=== PATIENT | female | born 1960 | race Caucasian/White ===

== ENCOUNTER 2017-03-26 07:58 | Emergency (ER) | payer OTHER ==
[~2017-03-26] VITALS: Ht 175.3 cm; Wt 88.0 kg
[~2017-03-26 07:58] MED LIST: Z.0.NO CURRENT MEDS
[2017-03-26 08:05] VITALS: BP 156/84; PULSE 82; RESP 16; TEMP 97.8; O2SAT 99
[2017-03-26] MEDS ORDERED: BENZ100 PO (08:21)
[2017-03-26] MEDS ORDERED: DOXY100C PO (08:21)
[2017-03-26] MEDS ORDERED: ONDANSETRON ODT 4 MG TAB PO ONE (08:30)
--- NOTE | 2017-03-26 08:36 | PD ---
HPI Chief Complaint: Cold / Flu Symptoms Time Seen by Provider: 08:04 Travel History International Travel<30 days: No Contact w/Intl Traveler<30days: No Traveled to known affect area: No History of Present Illness HPI 56-year-old female presents with three-day history of cough, congestion, diarrhea and ill feeling. She states that she went to her doctor yesterday and was given Tessalon Perles and doxycycline and feels about the same. She states that she has had 2 doses and last took it this morning. She feels worse when she moves around. She denies other modifying factors. She denies any other concurrent complaints. Quality is congestion. Duration is 3 days. PFSH Past Medical History Medical History: Denies Significant Hx Cancer: No Diabetes: No Glaucoma: No Hepatitis: No Hiatal Hernia: No Hypertension: No Thyroid Disease: No Influenza Vaccination: No ?: Not Past Surgical History Gynecologic Surgery: Yes (HYSTERECTOMY) Hysterectomy: Yes Oral Surgery: Yes (TONSILLECTOMY) Tonsillectomy: Yes Social History Alcohol Use: Yes (6 PACK/MONTH) Tobacco Use: No Substance Use: No Allergies-Medications (Allergen,Severity, Reaction): Coded Allergies: codeine (Unverified Allergy, Severe, N/V, 03/26/17) tramadol (Unverified Allergy, Severe, NAUSEA, COULD NOT WALK OR SEE, 03/26) Reported Meds & Prescriptions Reported Meds & Active Scripts Active Zofran Odt (Ondansetron Odt) 4 Mg Tab 4 Mg SL Q6HR PRN Reported Tessalon Perles (Benzonatate) 100 Mg Cap 100 Mg PO TID PRN Doxycycline Hyclate 100 Mg Cap 100 Mg PO BID Review of Systems Except as stated in HPI: all other systems reviewed are Neg Physical Exam Narrative General: No apparent distress, well appearing ENT: Posterior oropharyngx clear without exudate or erythema, external auditory canals are normal. Bilateral TM clear Neck: Neck is supple, no meningeal signs, trachea is midline Cardiovascular: Regular rate and rhythm Lungs: No increased respiratory effort noted, CTA bilaterally Abdomen: Soft, NT, ND, no rebound or guarding Extremities: No edema Neuro: Awake, motor and sensation grossly intact, normal speech Skin: Warm and dry Data Data Last Documented VS Vital Signs Date Time Temp Pulse Resp B/P (MAP) Pulse Ox O2 Delivery O2 Flow Rate FiO2 03/26/17 08:05 97.8 82 16 156/84 (108) 99 Room Air Orders Orders Ondansetron Odt (Zofran Odt) (03/26/17 08:30) Chest, Pa & Lat (03/26/17 ) Oral Rehydration (03/26/17 08:25) Ed Discharge Order (03/26/17 09:07) MDM Medical Decision Making Medical Screen Exam Complete: Yes Emergency Medical Condition: Yes Medical Record Reviewed: Yes (past history confirmed) Interpretation(s) cxr no acute Differential Diagnosis Upper respiratory infection, pneumonia, gastroenteritis Narrative Course Will check chest x-ray and dose with Zofran and orally hydrate. We'll recheck after, outside window for flu testing tolerating po challenge, Patient denies any new complaints and states that they are feeling better. all questions answered. Patient knows that follow up is incumbent on them and to return to the emergency room immediately if new or worsening symptoms develop. Patient given strict return precautions, vitals reviewed and are normal, agrees to further workup as an outpatient. Diagnosis Primary Impression: Upper respiratory infection Qualified Codes: J06.9 - Acute upper respiratory infection, unspecified Additional Impressions: Diarrhea Qualified Codes: R19.7 - Diarrhea, unspecified Nausea Patient Instructions: General Instructions Departure Forms: Tests/Procedures, Work Release Enter return to work date: Mar 28, 2017 Additional Instructions: return as needed, follow with primary wednesday, alternate tylenol and motrin Med/Other Pt SpecificInfo: Prescription(s) given Scripts Ondansetron Odt (Zofran Odt) 4 Mg Tab 4 MG SL Q6HR Y for Nausea/Vomiting, #10 TAB 0 Refills Prov: Stacia Ibanez MD 03/26/17 Disposition: 01 DISCHARGE HOME Condition: Stable Stacia Ibanez MD Mar 26, 2017 08:36
--- NOTE | 2017-03-26 09:01 | RADRPT ---
EXAM DATE/TIME: 03/26/2017 08:31 [facility] COMPARISON: No previous studies available for comparison. INDICATIONS : Weakness, vertigo, dehydration, cough x 3 weeks. Loss of appetite since x 5 days. MEDICAL HISTORY : Pneumonia 20 years ago. Former smoker. SURGICAL HISTORY : Tonsillectomy. Hysterectomy. Hammer toe. ENCOUNTER: Initial ACUITY: 3 weeks PAIN SCORE: 0/10 LOCATION: chest FINDINGS: PA and lateral views of the chest demonstrate the lungs to be symmetrically aerated without evidence of mass, infiltrate or effusion. The cardiomediastinal contours are unremarkable. Osseous structure s are intact. CONCLUSION: No acute disease. Shabbir Blakely Jr., MD on March 26, 2017 at 8:58 Board Certified Radiologist. This report was verified electronically.
[2017-03-26] MEDS ORDERED: ZOFR4TAB3 SL (09:07)
== END 2017-03-26 09:26 | disposition home or self-care (01) ==
LOC: PHED 07:58
DX: J06.9 Acute upper respiratory infection, unspecified (principal); R19.7 Diarrhea, unspecified; R11.0 Nausea; Z88.5 Allergy status to narcotic agent
CPT/HCPCS: 71020; 99283